=== PATIENT | male | born 1990 | race Caucasian/White ===

== ENCOUNTER 2021-09-09 10:40 | Emergency (ER) | payer BC, OTHER ==
[2021-09-09] MEDS ORDERED: Sodium Chloride 0.9% 10 ML Syringe FLUSH PRN (10:44)
[2021-09-09] MEDS: Sodium Chloride 0.9% 1,000 ML IV SCH (10:50)
[2021-09-09 11:05] LABS: ESTIMATED GFR > 60 (>60)
[2021-09-09] MEDS: Morphine 4 MG/ML VIAL IVPUSH ONE (11:07)
[2021-09-09] MEDS: Ondansetron 4 MG/2 ML SDV IVPUSH ONE (11:08)
[2021-09-09] MEDS: Iopamidol 755 Mg/ML 100 ML Bottle IV ONE (11:24)
[2021-09-09 13:01] VITALS: BP 123/67; PULSE 70
== END 2021-09-09 13:11 | disposition home or self-care (01) ==
LOC: FB.ED 10:40
DX: K50.90 Crohn's disease, unspecified, without complications (principal)
CPT/HCPCS: 36415; 74177; 80053; 81001; 82150; 83690; 85025; 96361; 96374; 96375; 99283; 99284; J2270; J2405; J7030; Q9967